=== PATIENT | male | born 1950 | race Caucasian/White ===

== ENCOUNTER 2025-03-05 14:38 | Emergency (ER) | payer BC, MEDICARE ==
[2025-03-05 15:03] LABS: BASOPHILS ABSOLUTE AUTO 0.03 10^3/uL (0.00-0.10); BASOPHILS PERCENT AUTO 0.4 % (0.0-1.0); EOSINOPHILS ABSOLUTE AUTO 0.75 10^3/uL (0.10-0.30); EOSINOPHILS PERCENT AUTO 10.9 % (1.0-3.0); IMMATURE GRAN ABSOLUTE AUTO 0.01 10^3/uL (0.00-0.04); IMMATURE GRAN PERCENT AUTO 0.1 % (0.0-0.4); LYMPHOCYTES ABSOLUTE AUTO 2.30 10^3/uL (1.00-4.00); LYMPHOCYTES PERCENT AUTO 33.5 % (20.0-40.0); MEAN PLATELET VOLUME 9.3 fL (7.4-10.4); MONOCYTES ABSOLUTE AUTO 0.71 10^3/uL (0.10-0.80); MONOCYTES PERCENT AUTO 10.3 % (2.0-8.0); NEUTROPHILS ABSOLUTE AUTO 3.07 10^3/uL (2.50-7.00); NEUTROPHILS PERCENT AUTO 44.8 % (50.0-70.0); PLATELET COUNT,PLT 247 10^3/uL (150-400); RED BLOOD CELL COUNT 4.99 10^6/uL (4.50-6.00); RED CELL DISTRIBUTION WIDTH 13.6 % (11.5-14.5); WHITE BLOOD CELL COUNT,WBC 6.87 10^3/uL (5.00-10.00)
[2025-03-05] MEDS: Codeine/guaiFENesin 10-100 MG/5 ML Syrup 5 ML Cup PO ONE ×2 (15:03→16:21)
[2025-03-05 15:18] LABS: ALANINE AMINOTRANSFERASE,ALT 26.0 U/L (14-63); ASPARTATE AMNIOTRANSFERASE,AST 29.0 U/L (15-37); BILIRUBIN TOTAL 0.5 mg/dL (0.2-1.0); BLOOD UREA NITROGEN,BUN 25.0 mg/dL (7-18); CARBON DIOXIDE,CO2 26.6 mmol/L (21.0-32.0); CHLORIDE,CL 103.0 mmol/L (98-107); CREATININE 1.36 mg/dL (0.51-1.17); EST CRCL DRUG DOSING (CG) 48.38 mL/min; GLUCOSE RANDOM 119.0 mg/dL (70-140); POTASSIUM,K 3.5 mmol/L (3.5-5.1); PROTEIN TOTAL,TP 7.4 g/dL (6.4-8.2); SODIUM,NA 140.0 mmol/L (136-145)
[2025-03-05 15:24] LABS: ESTIMATED GFR 55.0 mL/min (>=60)
[2025-03-10 14:07] LABS: B PARAPERTUSSIS, PCR Not Detected; B PERTUSSIS, PCR Not Detected; BPERT/PARAPERT SOURCE Nasopharyngeal
== END 2025-03-05 16:30 | disposition home or self-care (01) ==
LOC: KA.ED 14:38
DX: R05.3 Chronic cough (principal); J45.909 Unspecified asthma, uncomplicated; Z87.891 Personal history of nicotine dependence; Z79.899 Other long term (current) drug therapy
CPT/HCPCS: 71046; 80053; 83605; 85025; 87428-QW; 87798; 99284; 99285; A9270-GY